=== PATIENT | female | born 1955 | race Caucasian/White ===

== ENCOUNTER 2021-10-01 09:03 | Emergency (ER) | payer OTHER, MEDICARE ==
[~2021-10-01] VITALS: Ht 157.5 cm; Wt 74.8 kg
[2021-10-01 09:10] VITALS: BP 129/73
[2021-10-01 10:26] LABS: ABSOLUTE NEUTROPHILS 5.7 thou/uL (1.4-8.2); BASOPHILS 0.4 % (0.0-2.0); EOSINOPHILS 0.9 % (0.0-3.0); HEMOGLOBIN 14.9 gm/dL (12.0-15.0); LYMPHOCYTES 21.8 % (24.0-44.0); MCH 31.2 pg (26.0-34.0); MCHC 33.1 g/dL (28.0-37.0); MCV 94.4 fL (80.0-100.0); MONOCYTES 6.8 % (1.0-8.0); POLYS 70.1 % (36.0-66.0); RBC 4.77 mil/uL (4.20-5.00); RDW 13.8 % (10.5-14.5); WBC 8.1 thou/uL (4.0-11.0)
[2021-10-01 10:35] LABS: CALCIUM 9.9 mg/dL (8.5-10.1); CREATININE 1.2 mg/dL (0.6-1.0); POTASSIUM 3.7 mmol/L (3.5-5.1)
[2021-10-01 10:41] LABS: ALBUMIN 3.9 g/dL (3.4-5.0); TOTAL BILIRUBIN 0.3 mg/dL (0.2-1.0); TOTAL PROTEIN 7.2 g/dL (6.4-8.2)
--- NOTE | 2021-10-01 11:18 | EKG ---
[address] [place] [address] ELECTROCARDIOGRAM REPORT Name: SORAIDAJUAN DE Room #: [facility]..#: [id number] Admission: Attend Phys: Discharge: Date of : 53 Report #: [id number] [facility] ED Test Date: 2021-10-01 Test Time: 09:37:48 Pat Name: JUAN EVANS Department: Room: Gender: F Director Financial Analysis: KENNETH : 1955 Requested By: Jalil Rivera Order Number: [id number] MD: Terrence Maldonado Measurements Intervals [place] Rate: 98 P: 54 LA: 195 QRS: -11 QRSD: 94 T: 16 QT: 378 QTc: 483 Interpretive Statements Sinus rhythm Probable left atrial enlargement Low voltage, precordial leads Consider anterior infarct No previous ECG available for comparison Electronically Signed On 10-01-2021 11:17:55 SUPPLIER QUALITY MANAGER by Terrence Maldonado [email or web address] <ELECTRONICALLY SIGNED> By: Terrence Maldonado MD, [facility] 10/01/21 1117 [id number] Terrence Maldonado MD, FACC /EPI
[2021-10-01 11:28] LABS: PLATELET COUNT 204 thou/uL (150-400)
[2021-10-01 11:58] LABS: URINE BILIRUBIN NEGATIVE (Negative); URINE BLOOD NEGATIVE (Negative); URINE CLARITY CLEAR; URINE COLOR YELLOW; URINE GLUCOSE-RANDOM* 3+ (Negative); URINE KETONES NEGATIVE (Negative); URINE LEUKOCYTES-REFLEX NEGATIVE (Negative); URINE NITRITE-REFLEX NEGATIVE (Negative); URINE PROTEIN (DIPSTICK) NEGATIVE (Negative); URINE SPECIFIC GRAVITY 1.015 (1.005-1.035); URINE UROBILINOGEN 0.2 E.U./dl (0.2-1.0)
== END 2021-10-01 15:48 ==
LOC: ER 09:03
PROVIDERS: Emergency Medicine
DX: R45.1 Restlessness and agitation (principal); Z20.822 Contact with and (suspected) exposure to COVID-19; I10 Essential (primary) hypertension; F32.9 Major depressive disorder, single episode, unspecified

== ENCOUNTER 2021-10-01 13:27 | Inpatient (IN) | payer OTHER, MEDICARE ==
[~2021-10-01] VITALS: Ht 160 cm; Wt 73.5 kg
--- NOTE | 2021-10-01 16:11 | NUR ---
66 YEAR OLD FEMALE ARRIVES TO FLOOR VIA WC FROM ER AT APPROX 1555-PER RN ASSESSING IN ER PT LIVES WITH HER THERON WHO IS DPOA-HAS A 2-3 YEAR COGNITIVE DECLINE WITH DX OF DEMENTIA PER DR SHELDON AT NEUROLOGY. HOME ALONE DURING DAY WHILE WORKS-PER HAS HAD RECENT INCREASE IN AGITATION,SCREAMING-KICKED RECENTLY. TO
[2021-10-01 17:30] VITALS: BP 134/78
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
[2021-10-01 19:00] VITALS: BP 135/77
[2021-10-01 20:01] VITALS: BP 135/77
--- NOTE | 2021-10-01 23:31 | NUR ---
PATIENT CARE WAS RESUMED AT 1900. SHE WAS SITTING IN THE DININIG AREA WITH OTHR PATIENTS AND CHATTING. SHE AMBULATES , CONFUSED AND FORGETFUL BUT SHE WAS ABLE TO VERBALIZE SOME NEEDS. LUNGS ARE CLEAR BS ACTIVE X4 QUADS. SHE TOOK HER MEDS WHOLE AND DENIES PAINS/SI/AVH/HI. SHE IS CONTINENT OF BOWEL AND BLADDER. ABD IS SOFT , MODERATE SIZE AND NONE TENDER.BED IS LOW,LOCKED AND [id number] CHECKS IS ACTIVE. [facility]
[2021-10-02 06:33] LABS: CHOLESTEROL 124 mg/dL (<200); HDL CHOLESTEROL 44 mg/dL (>40); LDL CHOLESTEROL 49 mg/dL (<100); TC:HDL 2.8 Ratio (Not establshd); TRIGLYCERIDE 156 mg/dL (<150); VLDL 31 mg/dL (<40)
[2021-10-02 06:37] LABS: SERUM ASSESSMENT Clear
[2021-10-02 08:30] VITALS: BP 139/66
[2021-10-02 08:54] VITALS: BP 139/66
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
--- NOTE | 2021-10-02 15:36 | NUR ---
Assumed pt care this morning from overnight shift. Pt presented alert and oriented to self only, voicing that she "was here" pointing at armband while not being able to verbalize or clarify where she was. Pt was pleasant but could not articulate or gesture thoughts and feelings at this time. Pt shook head no when asked if she had any depression or anxiety. When asked if she had any hallucinations, pt stated no and shook head as well. When asked about suicidal and homicidal thoughts, pt stated no. Pt could not put together sentence at this time, and stated words one at a time. Pt could not articulate her interests or voice anything about herself during assessment. Slight pain noted, and prn tylenol given to help with this. Last bowel movement was today per pt report, thought pt has signinficant memory problems but remains continent of bowel and bladder. Lung sounds clear. Bowel sounds present and active. Pt took all medications this morning without issue. Pt has been redirected several times thoughout the day to walk away from other clients' rooms, but has been redirectable. When asked to take afternoon medication, pt tried to put water in medication cup, and was adverse to taking medication, stating she did not know how "unlike you I don't know everything" and nursing had to demonstrate to pt how to take medication. Pt took medication at this time after demonstration. Pt was able to shower independently with supervision on this shift. No further concerns at this time.
--- NOTE | 2021-10-02 22:34 | NUR ---
At onset of jigger crown pouncing machine operator pt was walking around outside the nurses station. This shift pt was alert and oriented only to self. Pt was labile; affect was broad. Pt would smile but become tearful easily. Pt was compliant with medication and vital signs. Speech was tangential with flight of ideas. Pt could not answer psych questions withouth being redirected back to the original question. Pt asked RN more than once when her would be coming to get her. Pt spoke to her on the phone; phone call appeared to go well. Pt was pleasant with staff and peers. Pt is low fall risk. Will continue to monitor.
[2021-10-03 02:06] LABS: GLYCOHEMOGLOBIN (HGB A1C) 6.7 % (4.8-5.6)
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
[2021-10-03 09:25] VITALS: BP 116/60
[2021-10-03 09:26] VITALS: BP 125/63
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
--- NOTE | 2021-10-03 10:18 | NUR ---
Alert. States she did not remember to each of orientation questions upon assessment but then looked at bracelet upon med pass. Also when copywriting intern asked for a Ale she clarified if he was looking for "Parul" or "Ale". Calm, cooperative and compliant. Participating in group. Currently watching TV with peers. Breath sounds clear. Reg HR auscultated. Color pink with brisk capillary refill and palpable peripheral pulses. Independent with voiding. Last BM was yesterday. Active bowel sounds over soft, rounded abdomen. Ambulates with regular, steady gait.
--- NOTE | 2021-10-03 12:43 | NUR ---
Message received from Moon ([phone]), nurse practitioner in the Memory Clinic at . Message stated wanted to support as patient's has contacted them regarding planning. Return phone call and explained that a meeting is being held today with the , Levi, regarding discharge planning and placement providing 24 hour supervision.
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
[2021-10-03 21:03] VITALS: BP 113/66
--- NOTE | 2021-10-03 22:30 | NUR ---
At onset of assistant casino shift manager pt was sitting in day room watching TV. This shift pt was alert and oriented only to self. Pt was up ad aranza independently. Pt was calm, pleasant and cooperative. Appearance was appropriate. Pt did have a phone call with her and was crying on the phone, but was able to calm down after the phone call. Pt was compliant with vital signs and medications. During conversation with RN, pt's speech was tangential and pt had a difficult time completing sentences. Pt is unable to answer questions appropriately. Pt is a low fall risk. Will continue to monitor.
[2021-10-04 07:43] VITALS: BP 138/70
--- NOTE | 2021-10-04 10:58 | NUR ---
Alert and orientated to name only. Denies SI/HI. Participating in group. Ambulates around unit without diff. Breath sounds clear. Reg HR auscultated. Color pink with brisk capillary refill and palpable peripheral pulses. No edema noted. Independent with voiding. Hypoctive bowel sounds over soft, rounded abdomen. Ambulates with regular, steady gait. Calm, cooperative and compliant, interacting with peers and staff.
[2021-10-04 19:32] VITALS: BP 107/49
--- NOTE | 2021-10-04 23:52 | NUR ---
At onset of nightclub manager pt was resting in bed. This shift pt was alert and oriented to self; when asked her birthday pt gave the correct month and day, but the incorrect year. Pt was up ad aranza independently. Pt was compliant with medication and vital signs. During conversation with RN pt was calm and pleasant, but pt had difficulty finding her words and completing sentences. Pt had a phone call in the evening that appeared to go well. Pt denied depression, anxiety, SI, HI and AVH. Pt did mention her 's name, but pt did not complete the sentence. Pt is low fall risk. Will continue to monitor.
[2021-10-05 08:59] VITALS: BP 125/67
[2021-10-05 09:30] VITALS: BP 125/67
--- NOTE | 2021-10-05 11:34 | NUR ---
Assumed pt care this morning from overnight shift. Pt presented alert and oriented to self only, and was wandering from place to place while staff tried to redirect her. Pt presented as calm and cooperative despite some restlessness, and was able to take all medications without issue. Pt denied depression/anxiety, and denied hallucinations at this time. Pt denied any suicidal or homicidal ideation at this time as welll. When asked if she had any pain, pt stated "I never had any pain." Pt lung sounds were clear and slightly diminished. Pt bowel sounds active. Last BM unknown but pt is largely continent. Pt blood glucose 111 this morning. No insulin given as this was not in sliding scale parameters. Pt educations on need for blood sugar and blood glucose levels/medications at this time. No further concerns.
[2021-10-05 19:40] VITALS: BP 128/67
[2021-10-05 20:08] VITALS: BP 128/67
[2021-10-05 20:10] VITALS: BP 105/82
[2021-10-05 20:13] VITALS: BP 128/67
--- NOTE | 2021-10-06 02:17 | NUR ---
PATIENT CARE WAS RESUMED AT 1900.SHE WAS SITTING IN THE DINING AREA WITH OTHER PATIENTS LUNGS ARE CLEAR,BS ACTIVE X4 QUADS.SHE IS CONTINENT BOWEL AND BLADDER. SHE TOOK HER MEDS WHOLE AND DENIES PAINS/SI/AVH/HI. SHE SPOKE WITH HER SPOUSE THIS SHIFT AND WAS VERY EXCITED. SHE IS VERY CONFUSED AND UNABLE TO VERBALISE CONCERNS AND GOLAS. PLEASANT AND CALM. BED IS LOW AND LOCKED.
[2021-10-06 08:35] VITALS: BP 133/75
[2021-10-06 11:30] VITALS: BP 133/75
--- NOTE | 2021-10-06 12:27 | NUR ---
RESUMMED CARE FROM OVERNIGHT SHIFT THIS AM, PATIENT ALERT ORIENTED TO SELF AND SITUATION. PATIENT SOMETIMES HAS CONFUSION SHE ATE BREAKFAST TOOK MEDICATION WITHOUT INCIDENCE. PATIENT DENIES SI/HI/AH/VH AT PRESENT PATIENTS ABDOMEN SOFT BOWEL SOUNDS PRESENT. PATIENTS LUNGS CLEAR PATIENT PARTICIPATES IN GROUPS TALKS WITH SOME OF THE FEMALE PATIENTS. WILL CONTINUE TO MONITOR PATIENT FOR SAFETY AND BEHAVIORS.
--- NOTE | 2021-10-06 15:48 | NUR ---
Email received from Levi Montiel requesting a referral be sent to [facility]. Email indicated Levi was also still considering in-home care for the patient. Referral faxed to Imelda Webb ([phone]) of [facility] Phone call to Levi with Dr. Wong. Dr. Wong explained the needs of the patient. After discussion, Levi seemed to be more interested in pursuing a facility rather than in-home care for the patient. Levi [facility]. The will send a referral. The will send a referral to Elena Callejas, [facility] and [facility]. Referral faxed to Radha of [facility] - [phone]
[2021-10-06 19:45] VITALS: BP 117/71
[2021-10-06 19:56] VITALS: BP 117/71
--- NOTE | 2021-10-07 01:19 | NUR ---
[facility] CARE WAS RESUMED AT 1900. SHE IS ALERT X1 AND CONFUSED. SHE AMBULATES AND SHE IS ABLE TO VERBALIZE NEEDS. LUNGS ARE CLEAR BS ACTIVE X4 QUAD. BS ACTIVE X4 QUADS. SHE TOOK HER MEDS WHOLE. SHE NEEDS ORIENTATION TO PLACE SHE IS CONFUSED TO ROOM LOCATION. SHE DENIES PAINS/SI/AVH/HI. BED IS LOW AND LOCKED CONTINUE TO MONITOR. [id number] CHECK IS ACTIVE.
[2021-10-07 07:48] VITALS: BP 105/72
--- NOTE | 2021-10-07 12:00 | NUR ---
Alert and orientated to name only. Ambulates around unit without s/o distress. Denies SI/HI. Does problem solve pointing at my badge when asked where she is but could not recall name of hospital. Breath sounds clear. Reg HR auscultated. Color pink with brisk capillary refill and palpable peripheral pulses. Independent with voiding. Active bowel sounds over soft, rounded abdomen. Currently eating lunch without s/o distress.
[2021-10-07 20:08] VITALS: BP 122/77
--- NOTE | 2021-10-08 03:58 | NUR ---
10-07-20 CARE TRANSFERRED 1899 OBSERVED PT WALKING IN HALLWAY. PT AAOX1, VSS, RR EVEN AND NONLABORED ON RA; LUNGS CLEAR, HT RR, ABDS SOFT/ACTIVE/NONTENDER. PT DENIES SI/HI AND PAIN, OBSERVED NO BEHAVIORS OF SI/HI OR NO S/S OF PAIN. PT PLESANTLY CONFUSED, CALM AND COOPEATIVE DURING NURSING ASSESSMENT. DURING MEDICATION ADMIN PT HAD NO DIFFICULTIES TAKING WHOLE WITH WATER. PT BECAME TEARFUL AND COULD NOT ARTICULATE HER THOUGHTS INTO WORD. PT WAS COMFORTED AND SEEMED TO CALM. PT WILL CONTINUE TO BE MONITOR PER [facility] PROTCOOL.
--- NOTE | 2021-10-08 08:07 | NUR ---
10/07/2021 - Email received from Levi regarding discharge date for the patient. Dr. Wong responded that discharge will be discussed during the treatment team meeting and that we (Dr. Wong and AR) would let him know after.
--- NOTE | 2021-10-08 08:08 | NUR ---
Referral for patient faxed to [facility].
--- NOTE | 2021-10-08 08:24 | NUR ---
Phone call to Levi regarding placement. Levi has spoken to SANTY and SANTY has encouraged Levi to look into 24hr care for the patient at home. Levi expressed being eager for the patient to return home and wanting to move forward this way. Levi further expressed wanting to explore the facilities if placement in the home was not successful. The SW explained to Levi that if the patient is discharged to his home, then he would need to contact the facilities regarding placement in the future. The AR and Levi agreed for the SW to contact the 3 facilities ([facility], [facility] and [facility]) to determine if the patient has been accepted and if accepted, would placement be able to occur immediately. Levi reports still being more interested in the patient returning home.
[2021-10-08 09:40] VITALS: BP 120/63
[2021-10-08 12:02] VITALS: BP 120/63
--- NOTE | 2021-10-08 13:12 | NUR ---
RESUMMED CARE; PATIENT LOCATED IN THE DINNING ROOM UPON PEERS; PATIENT DENIED PAIN-SOB-CP; A&O*1 WITH INTERMITTENT DISORIENTATION*4; PATIENT DENIES SI/HI/AVH; ALTHOUGH DEPRESSED AFFECT PRESENT; PATIENT BECAME TEARFUL WITH COOLING PAN TENDER DURING ASSESSMENT; PATIENT STATES "I AM JUST SO UPSET ABOUT MY MEMORY, WHAT IS HAPPENING WITH MY MEMORY." COOLING PAN TENDER WAS ABLE TO CONSULE PATIENT; VSS ON ROOMAIR; NO S/O ACUTE DISTRESS NOTED; LOW-FALL RISK PRECAUTIONS IN PLACE AT THIS TIME; WILL CONTINUE TO MONITIOR FOR SAFETY AND BEHAVIOR;
[2021-10-08] MEDS ORDERED: EXELON1 EAC2 TRANSDERM (15:59)
[2021-10-08] MEDS ORDERED: LIPITOR 20 MG T20 M1 PO (16:00)
[2021-10-08] MEDS ORDERED: TAMBOCOR 100 M100 M1 PO (16:00)
[2021-10-08] MEDS ORDERED: ZESTRIL30 MG PO (16:01)
[2021-10-08] MEDS ORDERED: ADULT LOW DOSE81 MG PO (16:01)
[2021-10-08] MEDS ORDERED: EFFEXOR XR75 MG PO (16:02)
[2021-10-08] MEDS ORDERED: TRAZODONE HCL100 MG PO (16:02)
[2021-10-08] MEDS ORDERED: SEROQUEL 50 MG50 MG PO (16:03)
[2021-10-08] MEDS ORDERED: METFORMIN HCL500 MG PO (16:03)
[2021-10-08 16:12] VITALS: BP 120/63
[2021-10-08 16:18] VITALS: BP 120/63
--- NOTE | 2021-10-08 16:39 | NUR ---
Phone contact with Levi. Levi reported to having a visit with [facility] today and one scheduled with [facility] tomorrow. Voice message received from Levi stating the visit went well with Nichol. A second voice message was received from Levi regarding placement. Email received from Levi stating he liked [facility] but that he wanted to move forward with in-home caregiving for the patient. 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 The forwarded this email to Dr. Wong. Communication was held with Dr. Wong to schedule discharge for at 11:00AM. Phone call to [facility] [employer] regarding confirmation of in-home services for the patient - VOICE MESSAGE. Phone call to Levi as it was reported to the that Levi was at the hospital. Levi reported that he had called the building and was informed that the patient was ready for discharge. The SW informed Levi that [place] [facility] [place] at 11:00AM. Dr. Wong talked to Levi and informed him that the discharge could be arranged for today since Levi reported that in-home services for the patient was in place. Levi provided the information for the pharmacy. AR contacted Dr. Sebastian Temple's office to confirm psychiatric appointment. Appointment is scheduled for 10/13/2021 at 9:45a.m. AR faxed discharge paperwork to psychiatrist.
[2021-10-08 16:58] VITALS: BP 120/63
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
== END 2021-10-08 16:41 | disposition home or self-care (01) | DRG 57 ==
LOC: SBH 13:27
PROVIDERS: ADMIT Psychiatry & Neurology Psychiatry; ATTEND Psychiatry & Neurology Psychiatry
DX: G30.9 Alzheimer's disease, unspecified (principal); F02.81 Dementia in other diseases classified elsewhere, unspecified severity, with behavioral disturbance; I48.92 Unspecified atrial flutter; I10 Essential (primary) hypertension; E11.65 Type 2 diabetes mellitus with hyperglycemia; E78.5 Hyperlipidemia, unspecified; Z20.822 Contact with and (suspected) exposure to COVID-19; Z79.899 Other long term (current) drug therapy
CPT/HCPCS: 10880